=== PATIENT | female | born 1985 | race Caucasian/White ===

== ENCOUNTER 2017-07-06 14:22 | Outpatient (CLI) | payer BC ==
[2017-07-06] MEDS ORDERED: Gadobenate Dimeglumine 529 MG/1 ML (20ML VIAL) ONE (17:26)
--- NOTE | 2017-07-06 19:06 | MRI ---
MRI CERVICAL SPINE WITH AND WITHOUT CONTRAST: Technique: Multiplanar, multisequence imaging of the cervical spine obtained. Post contrast images we re obtained after administration of 12 cc of MultiHance IV. History: Gait abnormality. FINDINGS: Cervical vertebrae maintain normal height and alignment. Disc spaces are maintained. Vertebral body s ignal is normal. Mild disc bulge is seen at C5-6 and C6-7. Small bulges flattening the thecal sac and mildly efface th e anterior subarachnoid space at these levels. There is no impingement on the cord. No central canal or foraminal stenosis identified. Cord signal is normal. There is no abnormal enhancement seen. IMPRESSION: 1. Mild disc bulge at C5-6 and C6-7 as described above. 2. MRI cervical spine otherwise unremarkable. POS: [facility]
--- NOTE | 2017-07-06 19:37 | MRI ---
MRI THORACIC SPINE WITH AND WITHOUT CONTRAST: Technique: Multiplanar, multisequential imaging of the thoracic spine obtained. Post contrast images obtained with administration of 12 cc of MultiHance IV. History: Gait abnormality. Involuntary hand movement. FINDINGS: Thoracic vertebra maintain normal height and alignment. Disc spaces are normally maintained. There is no evidence of disc bulge or disc protrusion at any of the thoracic levels. There is no evidence of central canal stenosis. The thoracic cord appears unremarkable. No abnormal enhancement identified. IMPRESSION: Unremarkable MRI of thoracic spine. POS: [facility]
== END 2017-07-06 14:23 | disposition home or self-care (01) ==
LOC: TBSIIMAG 14:22
PROVIDERS: ATTEND Psychiatry & Neurology Neurology
DX: R26.9 Unspecified abnormalities of gait and mobility (principal); M50.223 Other cervical disc displacement at C6-C7 level
CPT/HCPCS: 72156; 72157; A9579

== ENCOUNTER 2017-09-30 14:40 | Observation (INO) | payer BC ==
[2017-09-30 15:02] LABS: #Basophils 0.1 thou/uL (0.0-0.2); #Eosinphils 0.1 thou/uL (0.0-0.7); #Lymphocytes 2.4 thou/uL (1.20-3.40); #Monocytes 0.4 thou/uL (0.11-0.59); #Neutrophils 4.4 thou/uL (1.40-6.50); %Eosinophils 0.9 % (0.0-10.0); %Lymphocytes 32.7 % (21.0-51.0); %Monocytes 5.3 % (0.0-10.0); %Neutrophils 60.1 % (42.0-75.0); Hemoglobin 13.8 g/dL (12.0-16.0); Mean Corpuscular HGB CONC 33.9 g/dL (32.0-36.0); Mean Corpuscular Hemoglobin 28.7 pg (27.0-31.0); Mean Corpuscular Volume 84.7 fl (81.0-99.0); Mean Platelet Volume 6.1 fL (7.4-10.4); Platelet Count 307 thou/uL (130-400); RBC Distribution Width 11.3 % (11.5-14.5); White Blood Cell (WBC) Count 7.3 thou/uL (4.8-10.8)
[2017-09-30 15:09] LABS: PTT 27.8 SEC (22.9-36.1); Prothrombin Time 13.2 SEC (12.0-14.7)
[2017-09-30 15:18] LABS: ALT (SGPT) 14 U/L (8-55); AST (SGOT) 16 U/L (5-34); Albumin 4.9 g/dL (3.5-5.0); Alkaline Phosphatase 66 U/L (40-150); Anion Gap 9 mmol/L (10-20); BUN (Urea Nitrogen) 11 mg/dL (7.0-18.7); Bilirubin, Total 0.5 mg/dL (0.2-1.2); CK (CPK) 59 U/L (29-168); Calc. Creatinine Clearance 0 mL/min (70-130); Calcium 10.2 mg/dL (7.8-10.44); Carbon Dioxide 29 mmol/L (22-29); Chloride 102 mmol/L (98-107); Estimated GFR-MDRD 82; Globulin 2.8 g/dL (2.4-3.5); Glucose 88 mg/dL (70-105); Potassium 3.7 mmol/L (3.5-5.1); Protein, Total 7.7 g/dL (6.0-8.3); Sodium 136 mmol/L (136-145)
[2017-09-30 15:21] LABS: CKMB 0.6 ng/mL (0-6.6); Troponin I 0.011 ng/mL (< 0.028)
[2017-09-30 15:23] LABS: BHCG - Serum Negative (NEGATIVE); Pregs Control Background? CLEAR/WHITE (CLR/WHITE); Pregs Control Bar Appear? YES (CONTROL BAR)
--- NOTE | 2017-09-30 15:42 | CT ---
CT BRAIN WITHOUT CONTRAST: HISTORY: Syncope and right-sided facial numbness and weakness in the right lower extremity. FINDINGS: No evidence of infarct, hemorrhage, midline shift, or abnormal extraaxial fluid collections are seen. The ventricular size is normal and the basilar cisterns are patent. The bony calvarium is intact. The visualized paranasal sinuses and mastoid air cells are well aerated. IMPRESSION: No CT evidence of acute intracranial process. Discussed over the telephone with ER physician, Dr. Jennifer Boyer, at 3:12 p.m. CODE CR POS: [facility]
--- NOTE | 2017-09-30 15:48 | RAD ---
CHEST ONE VIEW: History: Altered mental status. Numbness. Comparison: None. FINDINGS: Frontal upright chest demonstrates a normal cardiac silhouette. The pulmonary vessels and hilum are n ormal. Costophrenic angles are clear. No consolidation or mass. No pneumothorax or osseous abnormalit y. IMPRESSION: No acute cardiopulmonary process. POS: [facility]
--- NOTE | 2017-09-30 15:59 | CT ---
CT ANGIOGRAM OF THE HEAD CT ANGIOGRAM OF THE NECK CT PERFUSION: HISTORY: Right facial numbness. Extremity numbness. Extremity numbness. Syncope. COMPARISON: None. TECHNIQUE: CT angiogram of the head and neck are performed in the axial plane. Sagittal and coronal 3-dimension al reformatted images are submitted for interpretation. CT perfusion is performed in the axial plane . FINDINGS: There is no pathologic enhancement of the brain parenchyma. Cortical jansen-white matter differentiati on is preserved. There is bilateral maxillary sinus mucosal disease. Adequate aeration of the sinuses and mastoid air cells. Bilateral ocular lenses are appropriately located. Both globes are intact. Retrobulbar fat is prese rved. Symmetric attenuation of the optic nerve and ocular rectus muscles. Limited evaluation of the oral cavity due to dental amalgam artifact. No obvious masses. Midline fa tty raphae of the tongue is preserved. Epiglottis is a normal caliber. Preepiglottic fat is preserv ed. Symmetric attenuation of the parotid and submandibular glands. The thyroid gland is unremarkable. Symmetric attenuation of the sternocleidomastoid muscles. Upper normal right level II lymph node measuring 0.9 x 0.9 cm. Upper normal left level II lymph node measuring 0.9 x 0.5 cm. Cervical spine vertebral body heights are maintained. No fracture. Upper mediastinum and lung apices are unremarkable. CT ANGIOGRAM: The aortic arch has appropriate enhancement and diameter. Right Carotid: The origin of the right carotid artery has appropriate enhancement and diameter. The right common fe moral artery, carotid bifurcation, and internal carotid artery have appropriate enhancement and diame ter. Left Carotid: Left carotid artery origin has appropriate enhancement and diameter. The left common carotid, caroti d bifurcation, and internal carotid artery have appropriate enhancement and diameter. Both vertebral body artery origins are patent. Both vertebral arteries are patent throughout their c ourse and neck and are essentially codominant. Bilateral subclavian arteries are unremarkable. CT ANGIOGRAM OF THE HEAD: There is symmetric enhancement and luminal diameter of the distal cervical intracranial internal gonzalez tid arteries. ANTERIOR CIRCULATION: Symmetric enhancement and luminal diameter of the A1 and M1 segments. The proximal A2 segments and t he proximal MCA branches are symmetric. POSTERIOR CIRCULATION: Both PICA artery origins are unremarkable. Both vertebral arteries supply a normal-appearing basilar artery. The left and right P1 segments have appropriate enhancement and luminal diameter. CT PERFUSION: There is no evidence of increased mean transit time. No evidence of decreased blood flow or decrease d blood volume. IMPRESSION: 1. Unremarkable CT angiogram of the neck. 2. Unremarkable CT perfusion study. Results of the study discussed with Jennifer Boyer 09/30/17 at 3:27 p.m. CODE CR POS: [facility]
[2017-09-30 16:12] LABS: Amphetamine Not Detected (NotDetected); Barbiturates Screen Not Detected (NotDetected); Benzodiazepine Screen Not Detected (NotDetected); Cocaine Metabolite Screen Not Detected (NotDetected); Medtox Control Line Valid? VALID (VALID); Medtox Reader # READER 1; Methadone Not Detected (NotDetected); Methamphetamine Not Detected (NotDetected); Opiate Screen Not Detected (NotDetected); Oxycodone Screen Not Detected (NotDetected); Phencyclidine (PCP) Not Detected (NotDetected); THC/Cannabinoid Screen Not Detected (NotDetected); Tricyclic Screen Detected (NotDetected)
[2017-09-30] MEDS ORDERED: Ondansetron HCl/PF 4 MG/2 ML Vial IVP PRN (17:22)
[2017-09-30] MEDS ORDERED: Acetaminophen 325 MG TAB PO PRN ×2 (17:22→17:23)
[2017-09-30] MEDS ORDERED: Ondansetron ODT 4 MG TAB SL PRN (17:22)
[2017-09-30] MEDS ORDERED: Ondansetron ODT 4 MG TAB PO PRN (17:23)
[2017-09-30 17:53] VITALS: BMI 25.5
--- NOTE | 2017-09-30 18:34 | PDOC.FPRHP ---
- History of Present Illness Chief Complaint: Passed out History of Present Illness: PCP: [facility] Call Time Seen: 1648 32 year old white female who presents with a syncopal episode occurring today at approximately 11:15 a.m. She reports she started noticing her hands and feet felt very cold 0800. About 5 minutes before the episode, she says her chest started hurting. She describes her vision going black "like when you stand up to fast" and slumping to the floor. She did not lose consciousness, lose bowel or bladder continence, and she remembers the entire event. She had a mild headache and reports right-sided facial numbness & tingling lasting hours after the episode, including when she was evaluated by Dr. Boyer in the ED. No reported facial droop or unilateral weakness. She was working on the computer and not under any stress at the time of the episode. She states she had been having intermittent right arm twitching off and on for some time. She saw 2 different doctors for it. Initially focal seizure was considered but she was ultimately told she was just "under a lot of stress". - Allergies/Adverse Reactions Allergies Allergy/AdvReac Type Severity Reaction Status Date / Time No Known Allergies Allergy Verified 09/30/17 17:45 - Home Medications Medication Instructions Recorded Confirmed Type Bupropion HCl [buPROPion HCl XL] 150 mg PO QAM 05/15/15 09/30/17 History Amitriptyline HCl 50 mg PO HS 09/30/17 09/30/17 History - History PMHx: Anxiety, depression, right hand tremor PSHx: Tonsillectomy, cholecystectomy FHx: Maternal aunt with factor 5 [place] Social: , 1 daughter. Works at the [employer]. Rarely consumes alcohol. Denies tobacco and alcohol use. - Review of Systems General: reports: fever/chills (Denies fever, reports chills), weight/appetite/ sleep changes (Reports increased appetite. Denies weight and sleep changes). denies: night sweats, fatigue Eyes: denies: eye pain ENT: denies: nasal congestion, rhinorrhea Respiratory: denies: cough, congestion, shortness of breath, exercise intolerance Cardiovascular: reports: chest pain. denies: palpitation, edema, paroxysmal nocturnal dyspnea, orthopnea Gastrointestinal: reports: constipation. denies: nausea, vomiting, diarrhea, abdominal pain, GI bleeding Genitourinary: denies: incontinence, dysuria, polyuria Skin: denies: rashes, lesions, jaundice Musculoskeletal: reports: pain (Lumbar pain this morning that is resolved). denies: tenderness, stiffness, swelling, arthritis/arthralgias Neurological: reports: syncope. denies: numbness, seizure, weakness Psychological: reports: anxiety, depression - Vital signs BP: [] HR: [] RR: [] Tmax: [] Pox: []% on [] Wt: [] - Physical Exam Constitutional: NAD, awake, alert and oriented, well developed HEENT: normocephalic and atraumatic, PERRLA, EOMI, conjunctiva clear, no scleral icterus, grossly normal vision, TM's clear and intact, grossly normal hearing, normal nasal mucosa, MMM, oropharynx clear, good dention Neck: supple, FROM, trachea midline, no LAD, no JVD, no thyromegaly Chest: no-tender to palpation, no lesions Heart: RRR, normal S1/S2, no murmurs/rubs/gallops, pulses present, no edema Lungs: CTAB, no respiratory distress, good air movement, no rales/rhonchi, no wheezing, no retractions Abdomen: soft, non-tender, bowel sounds present, no masses/distention, no hernias Musculoskeletal: normal structure, normal tone, ROM grossly normal Neurological: no focal deficit, CN II-XII intact, normal sensation, DTRs 2+ Skin: no rash/lesions, good turgor, capillary refill <2 seconds, no jaundice Heme/Lymphatic: no unusual bruising or bleeding, no purpura, no petechia, no LAD Psychiatric: normal mood and affect, good judgment and insight, intact recent and remote memory FMR H&P: Results - Labs Result Diagrams: 09/30/17 14:59 09/30/17 14:59 Lab results: WBC 7.3 thou/uL (4.8-10.8) 09/30/17 14:59 Hgb 13.8 g/dL (12.0-16.0) 09/30/17 14:59 Hct 40.7 % (36.0-47.0) 09/30/17 14:59 MCV 84.7 fl (81.0-99.0) 09/30/17 14:59 Plt Count 307 thou/uL (130-400) 09/30/17 14:59 Neutrophils % 60.1 % (42.0-75.0) 09/30/17 14:59 Sodium 136 mmol/L (136-145) 09/30/17 14:59 Potassium 3.7 mmol/L (3.5-5.1) 09/30/17 14:59 Chloride 102 mmol/L (98-107) 09/30/17 14:59 Carbon Dioxide 29 mmol/L (22-29) 09/30/17 14:59 BUN 11 mg/dL (7.0-18.7) 09/30/17 14:59 Creatinine 0.80 mg/dL (0.6-1.1) 09/30/17 14:59 Glucose 88 mg/dL (70-105) 09/30/17 14:59 Calcium 10.2 mg/dL (7.8-10.44) 09/30/17 14:59 Total Bilirubin 0.5 mg/dL (0.2-1.2) 09/30/17 14:59 AST 16 U/L (5-34) 09/30/17 14:59 ALT 14 U/L (8-55) 09/30/17 14:59 Alkaline Phosphatase 66 U/L (40-150) 09/30/17 14:59 Creatine Kinase 59 U/L (29-168) 09/30/17 14:59 CK-MB (CK-2) 0.6 ng/mL (0-6.6) 09/30/17 14:59 Serum Total Protein 7.7 g/dL (6.0-8.3) 09/30/17 14:59 Albumin 4.9 g/dL (3.5-5.0) 09/30/17 14:59 Laboratory Tests 09/30/17 09/30/17 09/30/17 14:59 14:59 15:58 CK-MB (CK-2) 0.6 Troponin I 0.011 Serum , Qual Negative Urine Opiates Screen Not Detected Ur Oxycodone Screen Not Detected Urine Methadone Screen Not Detected Ur Propoxyphene Screen Not Detected Ur Barbiturates Screen Not Detected Ur Tricyclics Screen Detected H Ur Phencyclidine Scrn Not Detected Ur Amphetamines Screen Not Detected U Methamphetamines Scrn Not Detected U Benzodiazepines Scrn Not Detected U Cocaine Metab Screen Not Detected U Cannabinoids Screen Not Detected - Radiology Interpretation CT scan - head Status: report reviewed by me Additional comment: CT head without contrast - No acute abnormalities Other Status: report reviewed by me Additional comment: CTA head and neck - No abnormalities FMR H&P: A/P - Problem List (1) Episode of syncope Current Visit: Yes Status: Acute Priority: High Code(s): R55 - SYNCOPE AND COLLAPSE Qualifiers: Syncope type: unspecified Qualified Code(s): R55 - Syncope and collapse (2) Anxiety Current Visit: Yes Status: Acute Code(s): F41.9 - ANXIETY DISORDER, UNSPECIFIED (3) Depression Current Visit: Yes Status: Acute Code(s): F32.9 - MAJOR DEPRESSIVE DISORDER , SINGLE EPISODE, UNSPECIFIED Qualifiers: Depression Type: unspecified Qualified Code(s): F32.9 - Major depressive disorder, single episode, unspecified - Plan 32 year old white female p/w: 1) Syncopal episode - History more consistent with syncopal episode than TIA but TIA does merit consideration based on residual unilateral facial parasthesias. Will get stroke scales overnight and check FLP. Syncope is much higher on differental - Place in observation - CT head and CTA head and neck normal - MRI, TTE, and TSH ordered - Consider evaluation from Factor V Leiden - Consider neuro consult 2) Anxiety - Continue home meds 3) Depression - Continue home meds Disposition/LOS: Place in observation. Anticipate 1 day stay with discharge home. FMR H&P: Upper Level - Plan Date/Time: 09/30/17 451 I, [], have evaluated this patient and agree with findings/plan as outlined by internet sales manager resident. Pertinent changes/additions are listed here. Attending Addendum - Attending Addendum Date/Time: 09/30/17 [id number] I personally evaluated the patient and discussed the management with Dr. Little I agree with the History, Examination, Assessment and Plan documented above with any addition or exceptions noted below- Briefly this is a 32 year old WF with no significant PMH who presented after a near syncopal episode earlier today. She reports that she noted an unusual feeling of coldness in her hands and feet this morning then later she had some chest tightness followed by her vision going black and she slumped to the floor. She remembers the enter incident. Denied any loss of bowel or bladder function. Mild DONALDSON afterwards. She noted right sided numbness which persisted and prompted her to seek medical attention. PMH/PSH/Meds/ SH/All reviewed and agree with resident's documentation. Physical exam repeated by me and agree with resident's documentation- Neuro exam- CN 2-12 grossly intact; no focal weakness. Rapid alternating movements intact. CT brain- no acute intracranial findings. CT Angio neck- normal. A/P: 1) Near syncopal event- continue to monitor on cardiac monitors. Echo in AM. 2) Numbness/Paresthesia- will check MRI brain in AM.
[2017-09-30 18:41] LABS: Troponin I Less than 0.010 ng/mL (< 0.028)
[2017-09-30] MEDS: Amitriptyline HCl 25 MG TAB PO SCH (20:27)
[2017-10-01 06:03] LABS: #Basophils 0.1 thou/uL (0.0-0.2); #Eosinphils 0.1 thou/uL (0.0-0.7); #Lymphocytes 2.4 thou/uL (1.20-3.40); #Monocytes 0.4 thou/uL (0.11-0.59); #Neutrophils 2.6 thou/uL (1.40-6.50); %Basophils 1.1 % (0.0-1.0); %Lymphocytes 42.5 % (21.0-51.0); %Monocytes 7.3 % (0.0-10.0); %Neutrophils 47.1 % (42.0-75.0); Hemoglobin 12.5 g/dL (12.0-16.0); Mean Corpuscular HGB CONC 33.8 g/dL (32.0-36.0); Mean Corpuscular Hemoglobin 28.8 pg (27.0-31.0); Mean Corpuscular Volume 85.1 fl (81.0-99.0); Mean Platelet Volume 6.1 fL (7.4-10.4); Platelet Count 266 thou/uL (130-400); RBC Distribution Width 11.3 % (11.5-14.5); Red Blood Cell (RBC) Count 4.36 mill/uL (4.20-5.40); White Blood Cell (WBC) Count 5.6 thou/uL (4.8-10.8)
[2017-10-01 06:13] LABS: Anion Gap 12 mmol/L (10-20); BUN (Urea Nitrogen) 14 mg/dL (7.0-18.7); Calc. Creatinine Clearance 102 mL/min (70-130); Calcium 9.1 mg/dL (7.8-10.44); Carbon Dioxide 24 mmol/L (22-29); Chloride 107 mmol/L (98-107); Cholesterol 186 mg/dl (< 200 Desired); Estimated GFR-MDRD 88; Glucose 100 mg/dL (70-105); HDL Cholesterol 63 mg/dL (>60 Neg Risk); LDL Cholesterol, Calculated 111 mg/dL; Potassium 3.9 mmol/L (3.5-5.1); Sodium 139 mmol/L (136-145); Triglycerides 58 mg/dL (Less than 150)
--- NOTE | 2017-10-01 07:48 | PDOC.FM ---
- Subjective Subjective: The patient reports that she has not had any further syncopal or pre-syncopal episodes since being in the hospital. She is still having some right sided numbness, but no weakness. She currently has a frontal headache that is bilateral. Last night she had a headache in the back of her head that was resolved with tylenol. She denies any dizziness, vertigo, or lightheadedness. She had some palpitations last night, but those have resolved. She denies any chest pain or SOB. - Objective MAR Reviewed: Yes Vital Signs & Weight: Vital Signs (12 hours) Temp Pulse Resp BP Pulse Ox 10/01/17 04:13 98.3 F 84 16 107/52 L 97 10/01/17 00:23 98.3 F 90 16 96/52 L 97 09/30/17 20:00 98.3 F 84 16 09/30/17 19:50 98.3 F 90 16 104/71 100 Weight Weight 61.326 kg Result Diagrams: 10/01/17 05:12 10/01/17 05:12 <Tahmina Beaulieu - Last Filed: 10/01/17 11:36> - Objective Vital Signs & Weight: Vital Signs (12 hours) Temp Pulse Resp BP Pulse Ox 10/02/17 11:59 98.3 F 83 18 97/60 100 10/02/17 08:59 98.5 F 80 14 10/02/17 08:02 98.5 F 80 14 103/57 L 100 10/02/17 04:43 98.5 F 92 14 83/43 L 98 Weight Weight 61.326 kg Result Diagrams: 10/01/17 05:12 10/01/17 05:12 <Mei Galarza - Last Filed: 10/02/17 16:24> Phys Exam - Physical Examination Constitutional: NAD HEENT: moist MMs Respiratory: no wheezing, no rales, no rhonchi, clear to auscultation bilateral Cardiovascular: RRR, no significant murmur, no rub Gastrointestinal: soft, non-tender, no distention, positive bowel sounds Musculoskeletal: no edema, pulses present Neurological: moves all 4 limbs CN II-XII intact, decreased sensation on the R to fine touch Psychiatric: normal affect, A&O x 3 Skin: normal turgor, cap refill <2 seconds <Tahmina Beaulieu - Last Filed: 10/01/17 11:36> Dx/Plan (1) Episode of syncope Code(s): R55 - SYNCOPE AND COLLAPSE Status: Acute QualifierTitle: Syncope type: unspecified Qualified Code(s): R55 - Syncope and collapse (2) Anxiety Code(s): F41.9 - ANXIETY DISORDER, UNSPECIFIED Status: Acute (3) Depression Code(s): F32.9 - MAJOR DEPRESSIVE DISORDER, SINGLE EPISODE, UNSPECIFIED Status : Acute QualifierTitle: Depression Type: unspecified Qualified Code(s): F32.9 - Major depressive disorder, single episode, unspecified - Plan Plan: 1) Syncopal episode History more consistent with vasovagal syncope than TIA, but TIA does merit consideration based on residual unilateral facial parasthesias. Will get stroke scales overnight and check FLP. Syncope is much higher on differential. CT head and CTA head and neck WNL. TSH & FLP WNL. Tele: NSR NIH score 1 overnight - Will get MRI & TTE - Will monitor on tele for arrhythmias - Consider evaluation from Factor V Leiden - Consider neuro consult 2) Anxiety Patient requiring ativan for MRI, but otherwise appears stable - Continue home meds 3) Depression - Continue home meds <Tahmina Beaulieu - Last Filed: 10/01/17 11:36> Attending Addendum - Attending Addendum Date/Time: 10/02/17 1622 I personally evaluated the patient and discussed the management with Dr. Beaulieu on 10/01/17. I agree with the History, Examination, Assessment and Plan documented above with any addition or exceptions noted below. Patient's MRI normal. Uncertain of etiology, but given symptoms will wait for echo to be done before discharge. Discussed possible causes with patient. <Mei Galarza - Last Filed: 10/02/17 16:24>
[2017-10-01] MEDS: Bupropion 150 MG SR TAB PO SCH (08:55)
[2017-10-01] MEDS: Lorazepam 0.5 MG TAB PO PRN ×2 (10:26→20:31)
--- NOTE | 2017-10-01 12:51 | MRI ---
MRI BRAIN WITHOUT CONTRAST: Technique: Multiplanar, multisequential imaging of the brain obtained. History: Syncope. Possible TIA. FINDINGS: The ventricles have normal size and position. There is no evidence of restricted diffusion. No eviden ce of white matter abnormality. No mass or edema. No evidence of hemorrhage. There is a 1 cm small mucous retention cyst in the right maxillary sinus and there are two small 8 mm retention cysts in the left maxillary antrum. Arteries at the base of the brain show flow voids. Dural venous sinuses appear patent. IMPRESSION: Unremarkable MRI brain. POS: [facility]
[2017-10-01] MEDS: Amitriptyline HCl 25 MG TAB PO SCH (20:31)
--- NOTE | 2017-10-02 08:06 | PDOC.FM ---
- Subjective Subjective: The patient reports that she is feeling much better this AM. She has not had any more episodes of lightheadedness or pre-syncope. She reports that the numbness in her R side has resolved. She reports no visions changes, nausea or vomiting. She did have a headache last night, but that has resolved. - Objective MAR Reviewed: Yes Vital Signs & Weight: Vital Signs (12 hours) Temp Pulse Resp BP BP Pulse Ox 10/02/17 04:43 98.5 F 92 14 83/43 L 98 10/01/17 23:54 98.4 F 93 16 96/59 L 100 10/01/17 23:34 98.4 F 93 16 96/59 L 16 L 10/01/17 20:31 98.5 F 91 16 10/01/17 20:20 98.5 F 91 16 103/62 98 Weight Weight 61.326 kg Result Diagrams: 10/01/17 05:12 10/01/17 05:12 <Tahmina Beaulieu - Last Filed: 10/02/17 10:45> - Objective Vital Signs & Weight: Vital Signs (12 hours) Temp Pulse Resp BP BP Pulse Ox 10/02/17 08:59 98.5 F 80 14 10/02/17 08:02 98.5 F 80 14 103/57 L 100 10/02/17 04:43 98.5 F 92 14 83/43 L 98 10/01/17 23:54 98.4 F 93 16 96/59 L 100 10/01/17 23:34 98.4 F 93 16 96/59 L 16 L Weight Weight 61.326 kg Result Diagrams: 10/01/17 05:12 10/01/17 05:12 <Rigoberto Rogers - Last Filed: 10/02/17 11:16> Phys Exam - Physical Examination Constitutional: NAD HEENT: moist MMs Respiratory: no wheezing, no rales, no rhonchi, clear to auscultation bilateral Cardiovascular: RRR, no significant murmur, no rub Gastrointestinal: soft, non-tender, no distention, positive bowel sounds Musculoskeletal: no edema, pulses present Neurological: non-focal, normal sensation, moves all 4 limbs Psychiatric: normal affect, A&O x 3 Skin: normal turgor, cap refill <2 seconds <Tahmina Beaulieu - Last Filed: 10/02/17 10:45> Dx/Plan (1) Episode of syncope Code(s): R55 - SYNCOPE AND COLLAPSE Status: Acute QualifierTitle: Syncope type: unspecified Qualified Code(s): R55 - Syncope and collapse (2) Anxiety Code(s): F41.9 - ANXIETY DISORDER, UNSPECIFIED Status: Acute (3) Depression Code(s): F32.9 - MAJOR DEPRESSIVE DISORDER, SINGLE EPISODE, UNSPECIFIED Status : Acute QualifierTitle: Depression Type: unspecified Qualified Code(s): F32.9 - Major depressive disorder, single episode, unspecified - Plan Plan: 1) Syncopal episode History more consistent with vasovagal syncope than TIA, but TIA does merit consideration based on residual unilateral facial parasthesias. Will get stroke scales. CT head and CTA head and neck WNL. TSH & FLP WNL. MRI showed no acute abnormalities Tele: NSR for the most part, but she did have a spike of sinus tachycardia into the 120's and another spike into the 100's yesterday afternoon. NIH score 1 overnight - Will get TTE - Will monitor on tele for arrhythmias - Consider evaluation for Factor V Leiden - Consider neuro consult 2) Anxiety Patient required ativan for MRI, but otherwise appears stable - Continue home meds 3) Depression - Continue home meds Dispo: likely d/c home today pending normal echo results <Tahmina Beaulieu - Last Filed: 10/02/17 10:45> Attending Addendum - Attending Addendum Date/Time: 10/02/17 1116 I personally evaluated the patient and discussed the management with Dr. Beaulieu. I agree with the History, Examination, Assessment and Plan documented above with any addition or exceptions noted below. <Rigoberto Rogers - Last Filed: 10/02/17 11:16>
[2017-10-02] MEDS: Bupropion 150 MG SR TAB PO SCH (09:15)
[2017-10-02 12:00] VITALS: BP 97/60; TEMP 98.3
--- NOTE | 2017-10-04 03:30 | DIS-2 ---
DATE OF ADMISSION: 09/30/2017 DATE OF DISCHARGE: 10/02/2017 ADMITTING RESIDENT: Dr. Joseph Little. DISCHARGE RESIDENT: Dr. Tahmina Beaulieu. ADMITTING ATTENDING: aPty Carter M.D. DISCHARGE ATTENDING: Rigoberto Rogers M.D. CONSULTATIONS: None. PROCEDURES: None. PRIMARY DIAGNOSIS: Syncope, likely vasovagal. SECONDARY DIAGNOSES: 1. Anxiety. 2. Depression. DISCHARGE MEDICATIONS: 1. Amitriptyline 50 mg p.o. at bedtime. 2. Bupropion 150 mg p.o. q.a.m. DISCONTINUED MEDICATIONS: None. HISTORY OF PRESENT ILLNESS AND HOSPITAL COURSE: This is a 32-year-old female with past medical histo ry of anxiety, depression, and a tremor, who presented after a syncopal episode that started that mor david while she was sitting at her desk at work. She reported her vision going black and then slumpin g to the floor. Patient also reported right-sided facial numbness as well as arm numbness and leg nu mbness and tingling. She has had a history of intermittent right arm twitching and [facility] that has been told it was stress related. The patient was evaluated for sync ope, would also TIA workup was done, as the patient had this episode of numbness; however, it was fou nd out later that she had had intermittent right-sided numbness that have been going on for several m onths. The patient had a brain CT, head and neck CTA, and brain MRI that were done that were all neg ative. She also had an echocardiogram done that showed an EF of 55%-60%. Trace mitral regurgitation and mild tricuspid regurgitation. She had normal tests, normal TSH, normal lipid panel, a nd normal troponins. The patient had a normal UDS except rhonchi tricyclics were detected; however, the patient was on amitriptyline, so this is to be expected. The patient was monitored on telemetry during her time in the hospital and except for a few bursts into sinus tachycardia into the 120s. Sh e for the most part stayed in normal sinus rhythm in the 70s-80s. No arrhythmias were found. The jose antonio vickers had no more episodes of lightheadedness, dizziness, or syncope throughout her hospitalization a nd the numbness had resolved by her second day of hospitalization. She was encouraged to establish w ith a PCP and was given information for our clinic as well as told of some other clinic she can follo w up with this as well. The patient was also encouraged to continue following up with Dr. Voss, who had seen her before regarding her arm twitching. It was encouraged that she get established with [facility], because there is likely that some of her symptoms could be related to stress and as most o f the organic causes have been ruled out and this was most likely at this point. DISPOSITION: Stable. DISCHARGE INSTRUCTIONS: 1. Location: Home. 2. Diet: Heart healthy. 3. Activity: As tolerated. 4. Followup: Establish with the PCP within 7-14 days.
== END 2017-10-02 12:50 | disposition home or self-care (01) ==
LOC: ERS 14:40 → 2SE 16:29 → INTOOBSV 16:29
PROVIDERS: ADMIT Family Medicine; ATTEND Family Medicine
DX: R55 Syncope and collapse (principal); F32.9 Major depressive disorder, single episode, unspecified; F41.9 Anxiety disorder, unspecified; R25.1 Tremor, unspecified
CPT/HCPCS: 0042T; 36415; 36416; 70450; 70496; 70498; 70551; 71045; 80048; 80053; 80061; 80306; 82553; 84443; 84484; 84703; 85025; 85610; 85730; 93005; 93306; 94760; G0378

== ENCOUNTER 2019-06-16 14:14 | Outpatient (CLI) | payer BC | END 2019-06-16 14:15 | disposition home or self-care (01) | LOC: DTY/OP 14:14 | PROVIDERS: ATTEND Obstetrics & Gynecology | DX: O24.410 Gestational diabetes mellitus in pregnancy, diet controlled (principal) | CPT/HCPCS: 97802 ==